=== PATIENT | male | born 1970 | race Hispanic/Latino ===

== ENCOUNTER 2021-04-17 11:04 | Inpatient (IN) | payer OTHER ==
[~2021-04-17] VITALS: Ht 182.9 cm; Wt 99.8 kg
[2021-04-17] VITALS (10 sets, daily range): BP systolic 115–136; BP diastolic 60–100
[2021-04-17] MEDS ORDERED: DIAZEPAM INJ 5 MG/ML 2 ML IV ONE ×2 (11:15→13:15)
[2021-04-17] MEDS ORDERED: SODIUM CHLORIDE 0.9% 1000ML 2,000 ML IV ONE (11:15)
[2021-04-17] MEDS ORDERED: THIAMINE HCL 100 MG TAB PO STA (11:17)
[2021-04-17] MEDS ORDERED: DILTIAZEM HCL 5 MG/ML 5 ML VIAL IV ONE ×3 (11:45→13:00)
[2021-04-17 11:53] LABS: BASOPHILS # (AUTO) 0.1 (0.0-0.1); BASOPHILS % 0.6 % (0.0-1.0); EOSINOPHILS % 0.4 % (0.0-6.0); HEMATOCRIT 31.8 % (38.2-49.6); HEMOGLOBIN 9.1 g/dL (14.0-18.0); LYMPHOCYTES # (AUTO) 1.3 (1.0-3.2); LYMPHOCYTES % 16.6 % (18.0-39.1); MEAN CORPUSCULAR HEMOGLOBIN 22.4 pg (28-32); MEAN CORPUSCULAR HGB CONC 28.6 g/dL (31-35); MEAN CORPUSCULAR VOLUME 78.1 fL (81-99); MONOCYTES # (AUTO) 0.6 (0.2-0.8); MONOCYTES % 6.9 % (4.4-11.3); NEUTROPHILS # (AUTO) 6.1 (2.1-6.9); NEUTROPHILS % 75.3 % (38.7-80.0); PLATELET COUNT 139 x10e3/uL (140-360); RED BLOOD COUNT 4.07 x10e6/uL (4.3-5.7); RED CELL DISTRIBUTION WIDTH 18.6 % (11.7-14.4)
[2021-04-17 12:00] LABS: INR 0.99; PROTHROMBIN TIME 13.9 seconds (11.9-14.5)
[2021-04-17 12:01] LABS: PARTIAL THROMBOPLASTIN TIME 27.5 seconds (23.8-35.5)
[2021-04-17 12:34] LABS: ANION GAP 19.7 mmol/L (8-16); CALCIUM 8.6 mg/dL (8.4-10.2); CREATININE, SERUM 0.83 mg/dL (0.72-1.25); POTASSIUM 3.7 mmol/L (3.5-5.1)
[2021-04-17 12:55] LABS: THYROID STIMULATING HORMONE 0.708 uIU/mL (0.350-4.940)
[2021-04-17] MEDS: DILTIAZEM HCL 125 ML IV SCH ×2 (13:22→22:03)
[2021-04-17] MEDS ORDERED: SODIUM CHLORIDE 0.9% 100 ML ONE (13:43)
[2021-04-17] MEDS ORDERED: IOPAMIDOL 370 MG/ML 200 ML INFUS..BTL INJ ONE (13:44)
[2021-04-17 14:20] LABS: AMPHETAMINES SCREEN,URINE NEGATIVE (NEGATIVE); BENZODIAZEPINES SCREEN,URINE NEGATIVE (NEGATIVE); PHENCYCLIDINE SCREEN,URINE NEGATIVE (NEGATIVE)
[2021-04-17] MEDS ORDERED: METOPROLOL TARTRATE INJ 1 MG/ML VIAL ONE (14:59)
[2021-04-17] MEDS ORDERED: METOPROLOL TARTRATE INJ 1 MG/ML VIAL IV ONE (15:00)
[2021-04-17] MEDS ORDERED: MULTIVITAMINS- 12 INJECTION 10 ML, FOLIC ACID MDV 1 MG, THIAMINE HCL INJ 100 MG in SODI... IV ONE (15:00)
[2021-04-17] MEDS: RIVAROXABAN 20 MG TABLET PO SCH (16:24)
[2021-04-17] MEDS: METOPROLOL TARTRATE 25 MG TAB PO SCH (16:24)
[2021-04-17] MEDS: LORAZEPAM INJ 2 MG/ML VIAL IV PRN ×2 (16:34→23:15)
[2021-04-17] MEDS ORDERED: LOSARTAN POTASS25 MG PO (16:40)
[2021-04-17] MEDS ORDERED: XARELTO20 MG PO (16:40)
[2021-04-17] MEDS ORDERED: ZOLPIDEM TARTRATE 5 MG TAB PO PRN (21:00)
[2021-04-17] MEDS: CHLORDIAZEPOXIDE HCL 25 MG CAP PO SCH (21:45)
[2021-04-18] VITALS (17 sets, daily range): BP systolic 95–135; BP diastolic 64–89
[2021-04-18] MEDS ORDERED: BENZONATATE 100 MG CAP PO PRN (01:00)
[2021-04-18] MEDS ORDERED: HYDRALAZINE HCL 20 MG/ML VIAL IV PRN (01:00)
[2021-04-18] MEDS ORDERED: TRAMADOL HCL 50 MG TAB PO PRN (01:00)
[2021-04-18] MEDS ORDERED: LIDOCAINE 4% PATCH TP PRN (01:00)
[2021-04-18] MEDS ORDERED: ALBUTEROL/IPRATROPIUM 3 ML NEB NEB PRN (01:00)
[2021-04-18] MEDS ORDERED: MELATONIN 5 MG TABLET PO PRN (01:00)
[2021-04-18] MEDS ORDERED: DEXTROSE 50% SYRINGE 50 ML IV PRN (01:00)
[2021-04-18] MEDS ORDERED: ACETAMINOPHEN 325 MG TAB PO PRN (01:00)
[2021-04-18] MEDS ORDERED: DOCUSATE SODIUM 100 MG CAP PO PRN (01:00)
[2021-04-18] MEDS ORDERED: ONDANSETRON HCL INJ 2MG/ML 2ML 2 MG/ML VIAL IV PRN (01:00)
[2021-04-18] MEDS ORDERED: SIMETHICONE 80 MG CHEW PO PRN (01:00)
[2021-04-18] MEDS ORDERED: DIPHENHYDRAMINE HCL 25 MG CAP PO PRN (01:00)
[2021-04-18 05:10] LABS: BASOPHILS # (AUTO) 0.1 (0.0-0.1); BASOPHILS % 0.8 % (0.0-1.0); EOSINOPHILS # (AUTO) 0.2 (0.0-0.4); EOSINOPHILS % 3.4 % (0.0-6.0); HEMATOCRIT 28.2 % (38.2-49.6); HEMOGLOBIN 8.3 g/dL (14.0-18.0); LYMPHOCYTES # (AUTO) 1.5 (1.0-3.2); LYMPHOCYTES % 25.1 % (18.0-39.1); MEAN CORPUSCULAR HEMOGLOBIN 22.4 pg (28-32); MEAN CORPUSCULAR HGB CONC 29.4 g/dL (31-35); MONOCYTES # (AUTO) 0.5 (0.2-0.8); MONOCYTES % 8.9 % (4.4-11.3); NEUTROPHILS # (AUTO) 3.7 (2.1-6.9); NEUTROPHILS % 61.3 % (38.7-80.0); PLATELET COUNT 125 x10e3/uL (140-360); RED BLOOD COUNT 3.71 x10e6/uL (4.3-5.7); RED CELL DISTRIBUTION WIDTH 18.7 % (11.7-14.4)
[2021-04-18 05:29] LABS: ALBUMIN 3.2 g/dL (3.5-5.0); ALBUMIN/GLOBULIN RATIO 1.1 (0.8-2.0); ANION GAP 12.6 mmol/L (8-16); CALCIUM 8.5 mg/dL (8.4-10.2); CREATININE, SERUM 0.74 mg/dL (0.72-1.25); POTASSIUM 3.6 mmol/L (3.5-5.1)
[2021-04-18] MEDS: CHLORDIAZEPOXIDE HCL 25 MG CAP PO SCH (05:45)
[2021-04-18 06:24] LABS: CHOL/HDL RATIO 2.1 (3.9-4.7); MAGNESIUM 1.8 MG/DL (1.3-2.1)
[2021-04-18] MEDS: DILTIAZEM HCL 125 ML IV SCH (06:32)
[2021-04-18 06:49] LABS: THYROID STIMULATING HORMONE 0.805 uIU/mL (0.350-4.940)
[2021-04-18] MEDS ORDERED: POTASSIUM CHLORIDE 20 MEQ TAB CR PO SCH (07:00)
[2021-04-18] MEDS ORDERED: PANTOPRAZOLE SOD 40 MG TABEC PO SCH (07:30)
[2021-04-18] MEDS ORDERED: THIAMINE HCL 100 MG TAB PO SCH (09:00)
[2021-04-18] MEDS ORDERED: DILTIAZEM HCL ER 120 MG CAP PO SCH (09:15)
[2021-04-18] MEDS: METOPROLOL TARTRATE 25 MG TAB PO SCH (09:22)
[2021-04-18] MEDS: LORAZEPAM INJ 2 MG/ML VIAL IV PRN (09:47)
[2021-04-18] MEDS: RIVAROXABAN 20 MG TABLET PO SCH (16:20)
[2021-04-18] MEDS ORDERED: METOPROLOL TART25 MG PO (16:45)
[2021-04-18] MEDS ORDERED: CHLORDIAZEPOXIDE HCL 25 MG CAP PO SCH (20:00)
[2021-04-19] MEDS ORDERED: RIVAROXABAN 20 MG TABLET PO SCH (09:00)
== END 2021-04-18 19:20 | disposition home or self-care (01) | DRG 309 ==
LOC: ER 11:08 → ERHOLD 15:08 → ICU 15:51
PROVIDERS: ADMIT Internal Medicine; ATTEND Internal Medicine
DX: I48.91 Unspecified atrial fibrillation (principal); F10.231 Alcohol dependence with withdrawal delirium; Z79.01 Long term (current) use of anticoagulants; K70.30 Alcoholic cirrhosis of liver without ascites; D69.59 Other secondary thrombocytopenia; D50.0 Iron deficiency anemia secondary to blood loss (chronic); Z91.14 Patient's other noncompliance with medication regimen; K76.0 Fatty (change of) liver, not elsewhere classified; D63.8 Anemia in other chronic diseases classified elsewhere; Z20.822 Contact with and (suspected) exposure to COVID-19; F41.9 Anxiety disorder, unspecified
CPT/HCPCS: 36415; 71045; 71260; 76700; 80048; 80053; 80061; 80307; 83735; 84443; 84484; 85025; 85379; 85610; 85730; 93005; 93306; 94799; 99284; J2060; J3360; J3411; J7030; J7050; Q9967; U0002